=== PATIENT | male | born 2000 | race Caucasian/White ===

== ENCOUNTER 2023-10-31 23:18 | Emergency (ER) | payer BC ==
[~2023-10-31] VITALS: Ht 175.3 cm; Wt 83.0 kg
[2023-10-31 23:42] VITALS: O2SAT 100
[2023-11-01] MEDS ORDERED: LIDO700A15 TP (02:33)
[2023-11-01] MEDS ORDERED: CYCL5TAB MT (02:33)
[2023-11-01] MEDS ORDERED: NAPR-679 MT (02:33)
[2023-11-01] MEDS ORDERED: ACETAMINOPHEN 325MG TABLET PO ONE (02:45)
[2023-11-01] MEDS ORDERED: KETOROLAC 60MG/2ML VIAL IM ONE (02:45)
[2023-11-01] MEDS ORDERED: CYCLOBENZAPRINE 10MG TABLET PO ONE (02:45)
[2023-11-01 03:45] VITALS: BP 131/74; PULSE 60; RESP 18; TEMP 98.3
== END 2023-11-01 03:45 | disposition home or self-care (01) ==
LOC: ER 23:37
DX: S16.1XXA Strain of muscle, fascia and tendon at neck level, initial encounter (principal); Z88.0 Allergy status to penicillin; V49.49XA Driver injured in collision with other motor vehicles in traffic accident, initial encounter; Y93.89 Activity, other specified; Y92.89 Other specified places as the place of occurrence of the external cause; Y99.8 Other external cause status
CPT/HCPCS: 99283; 96372; J1885